=== PATIENT | male | born 1980 | race Caucasian/White ===

== ENCOUNTER 2018-06-10 10:49 | Emergency (ER) | payer OTHER ==
[2018-06-10 10:54] VITALS: BP 124/75; PULSE 87; TEMP 98; BMI 27.4
--- NOTE | 2018-06-10 11:22 | PDOC ---
History of Present Illness - General Chief Complaint: Respiratory Stated Complaint: COLD SYMPTOMS Time Seen by Provider: 06/10/18 11:12 History Source: Patient Exam Limitations: No Limitations (cough X 3 days) - History of Present Illness Associated Symptoms: reports: cough. denies: fever/chills, headache, lightheadedness, nasal congestion, sore throat, wheezing Past History - Travel Traveled outside of the country in the last 30 days: No Close contact w/someone who was outside of country & ill: No - Past Medical History Allergies/Adverse Reactions: Allergies Allergy/AdvReac Type Severity Reaction Status Date / Time No Known Allergies Allergy Verified 06/10/18 10:54 Home Medications: Ambulatory Orders Azithromycin 250 mg PO ACDIN 5 Days #6 tablet 06/10/18 Benzonatate [Tessalon Pearls -] 100 mg PO TID #21 capsule 06/10/18 COPD: No - Suicide/Smoking/Psychosocial Hx Smoking History: Never smoked Respiratory Specific PMHX - Complaint Specific PMHX Angina: No Review of Systems - Review of Systems Is the patient limited Lithuanian proficient: No Constitutional: No: Chills, Fever Respiratory: Yes: Cough, Productive cough. 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 NML intact, Fully Oriented, Alert Moderate Sedation - Procedure Monitoring Vital Signs: Procedure Monitoring Vital Signs Temperature 98 F 06/10/18 10:52 Pulse Rate 87 06/10/18 10:52 Respiratory Rate 18 06/10/18 10:52 Blood Pressure 124/75 06/10/18 10:52 O2 Sat by Pulse Oximetry (%) 99 06/10/18 10:52 ED Treatment Course - RADIOLOGY Radiology Studies Ordered: Category Date Time Status CHEST PA & LAT [RAD] Stat Radiology 06/10/18 11:19 Ordered Medical Decision Making - Medical Decision Making 06/10/18 11:40 38y/o M with productive cough X 3 days, non smoker, denies f/c, wheezing, CP or SOB exam with coarse rhonchi in lower lung base xray with slight increased markings in Left lower base will tx with zpak *DC/Admit/Observation/Transfer Diagnosis at time of Disposition: Infiltrate of lung present on chest x-ray - Discharge Dispostion Disposition: HOME Condition at time of disposition: Stable Decision to Admit order: No - Prescriptions Prescriptions: Azithromycin 250 mg PO ACDIN 5 Days #6 tablet Benzonatate [Tessalon Pearls -] 100 mg PO TID #21 capsule - Referrals Referrals: Mendoza Polk [Primary Care Provider] - - Patient Instructions Printed Discharge Instructions: Cough Additional Instructions: Your chest x-ray shows some mild infiltrate (congestion vs infection) in the lungs. Antibiotic has been sent to treat for potential early pneumonia. Please follow-up with her primary care doctor for reevaluation. Return to the Emergency Department if worsening symptoms occurs. - Post Discharge Activity
== END 2018-06-10 12:16 | disposition home or self-care (01) ==
LOC: JERFT 10:49
DX: R91.8 Other nonspecific abnormal finding of lung field (principal)
CPT/HCPCS: 71046-TC-FY; 99281-25